=== PATIENT | female | born 1970 | race Caucasian/White ===

== ENCOUNTER 2021-12-28 13:46 | Outpatient (CLI) | payer OTHER | END 2021-12-28 14:00 | disposition home or self-care (01) | LOC: RAD 13:46 | PROVIDERS: ATTEND Physical Medicine & Rehabilitation Pain Medicine | DX: M41.20 Other idiopathic scoliosis, site unspecified (principal) ==

== ENCOUNTER 2023-02-26 09:03 | Emergency (ER) | payer OTHER ==
[~2023-02-26] VITALS: Ht 162.6 cm; Wt 59.9 kg
[2023-02-26] MEDS ORDERED: NEURONTIN600 M1 PO (09:27)
[2023-02-26] MEDS ORDERED: SINGULAIR 10MG10 MG PO (09:27)
[2023-02-26] MEDS ORDERED: NORFLEX100MG PO (11:59)
[2023-02-26] MEDS ORDERED: ZYRTEC10 MG PO (11:59)
[2023-02-26] MEDS ORDERED: DOLOGEN CAPLET1 EACH PO (11:59)
== END 2023-02-26 13:20 | disposition home or self-care (01) ==
LOC: ER 09:03
DX: B34.9 Viral infection, unspecified (principal); Z20.822 Contact with and (suspected) exposure to COVID-19